=== PATIENT | female | born 1975 | race Caucasian/White ===

== ENCOUNTER → 2021-11-13 01:11 | Outpatient (CLI) | payer OTHER, SELFPAY ==
[2021-11-13 14:24] LABS: Influenza Control Positive
[2021-11-13 20:43] LABS: SARS-CoV-2 RNA PCR Positive
== END ==
PROVIDERS: PCP Internal Medicine; Visit Provider Internal Medicine
DX: U07.1 COVID-19 (principal); R50.9 Fever, unspecified
CPT/HCPCS: 87804; C9803; U0003; U0005

== ENCOUNTER 2022-03-25 16:16 | Outpatient (CLI) | payer OTHER, SELFPAY ==
[2022-03-25 16:41] LABS: Basophils Percent Auto 0.6 % (0.2-1.2); Eosinophils Percent Auto 0.6 % (0-4.4); Hematocrit 41.3 % (37.0-47.0); Hemoglobin 13.2 g/dL (12.0-15.0); Immature Granulocyte Absolute 0.03 K/mm3 (0.00-0.031); Immature Granulocyte Percent A 0.4 % (0-0.5); Lymphocytes Absolute Auto 2.02 K/mm3 (0.9-3.2); Lymphocytes Percent Auto 30.1 % (18.3-44.2); Mean Corpuscular Hemoglobin 29.3 pg (26-34); Mean Corpuscular Volume 91.6 fl (80-100); Mean Platelet Volume 8.4 fl (7.4-10.4); Monocytes Absolute Auto 0.4 K/mm3 (0.1-0.6); Monocytes Percent Auto 5.7 % (2.6-8.5); Neutrophils Absolute Auto 4.2 K/mm3 (1.3-6.7); Neutrophils Percent Auto 62.6 % (45.5-73.1); Platelet Count Result 257 k/mm3 (150-375); Red Blood Count 4.51 M/mm3 (4.2-5.4); Red Cell Distribution Width 12.8 % (11.5-14.5); White Blood Count 6.7 K/mm3 (4.5-10.0)
[2022-03-25 16:46] LABS: Alanine Aminotransferase 25 U/L (6-35); Albumin Level 4.5 g/dL (3.5-5.1); Alkaline Phosphatase 56 U/L (38-126); Anion Gap 5 mmol/L (8-16); Aspartate Amino Transferase 37 U/L (14-36); Bilirubin,Total 0.2 mg/dL (0.2-1.3); Blood Urea Nitrogen 17 mg/dL (7-17); Calcium 9.4 mg/dL (8.4-10.2); Carbon Dioxide 31 mmol/L (22-30); Chloride 101 mmol/L (98-107); Cholesterol 192 mg/dL (0-200); Estimated Glomerular Filt Rate > 60; Glucose 109 mg/dL (65-110); HDL Direct 83 mg/dL; Potassium 4.3 mmol/L (3.4-5.0); Sodium 137 mmol/L (137-145); Triglycerides 66 mg/dL (<150)
[2022-03-25 16:59] LABS: Add Urine Microscopic? YES; Appearance Urine Clear (Clear); Bilirubin Urine Negative (Negative); Blood Urine Trace-Intact (Negative); Color Urine Light Yellow (Yellow); Glucose Urine UA Negative (Negative); Ketones Urine Negative (Negative); Leukocyte Esterase Ur Trace LEU/UL (Negative); Nitrate Urine Negative (Negative); Protein Urine Negative (Negative); Urobilinogen Urine 0.2 mg/dL (<2.0)
[2022-03-25 17:03] LABS: LDL Cholesterol Direct 80 mg/dL
[2022-03-25 17:06] LABS: Squamous Epithelial Cell Urine Rare /hpf (Few)
[2022-03-25 18:07] LABS: Free T4 Free Thyroxine 1.06 ng/mL (0.78-2.19); Vitamin D 25 Hydroxy 75.8 ng/mL
[2022-03-25 18:55] LABS: Hemoglobin A1C 5.8 % (<5.7)
== END 2022-03-25 16:17 | disposition home or self-care (01) ==
PROVIDERS: PCP Internal Medicine; Visit Provider Internal Medicine
DX: I10 Essential (primary) hypertension (principal); E89.0 Postprocedural hypothyroidism; E55.9 Vitamin D deficiency, unspecified; Z79.899 Other long term (current) drug therapy; R73.03 Prediabetes; E78.5 Hyperlipidemia, unspecified
CPT/HCPCS: 36415; 80053; 80061; 81001; 82306; 83036; 84439; 84443; 85025

== ENCOUNTER 2022-05-20 15:08 | Outpatient (CLI) | payer OTHER, SELFPAY | END 2022-05-20 15:09 | disposition home or self-care (01) | LOC: ANHLAB 15:09 | PROVIDERS: PCP Internal Medicine; Visit Provider Internal Medicine | DX: Z20.818 Contact with and (suspected) exposure to other bacterial communicable diseases (principal) | CPT/HCPCS: 87081 ==

== ENCOUNTER 2022-08-05 15:05 | Outpatient (CLI) | payer OTHER, SELFPAY ==
--- NOTE | ~2022-08-05 | XR_ITS ---
XR foot LT min 3V DATE: 08/05/2022 15:30 INDICATION: Left foot injury TECHNIQUE: 4 views COMPARISON: None FINDINGS: Exaggerated arch. Mild plantar calcaneal enthesopathy without associated erosive change or periostitis. Mild osteoarthritis at the first metatarsophalangeal joint. No fracture, dislocation, periosteal reaction or bone destruction. IMPRESSION: Mild plantar calcaneal enthesopathy Mild osteoarthritis at first metatarsophalangeal joint Reviewed, dictated and finalized at location B.
== END 2022-08-05 15:06 | disposition home or self-care (01) ==
PROVIDERS: PCP Internal Medicine; Visit Provider Internal Medicine
DX: M77.32 Calcaneal spur, left foot (principal); M19.072 Primary osteoarthritis, left ankle and foot; S99.922A Unspecified injury of left foot, initial encounter; X58.XXXA Exposure to other specified factors, initial encounter
CPT/HCPCS: 73630

== ENCOUNTER 2022-11-09 16:09 | Outpatient (CLI) | payer OTHER, SELFPAY ==
[2022-11-09 17:34] LABS: Basophils Absolute Auto 0.1 K/mm3 (0.0-0.1); Basophils Percent Auto 0.9 % (0.2-1.2); Eosinophils Absolute Auto 0.1 K/mm3 (0-0.3); Eosinophils Percent Auto 2.2 % (0-4.4); Hematocrit 41.3 % (37.0-47.0); Hemoglobin 13.3 g/dL (12.0-15.0); Immature Granulocyte Absolute 0.02 K/mm3 (0.00-0.031); Immature Granulocyte Percent A 0.3 % (0-0.5); Lymphocytes Absolute Auto 2.03 K/mm3 (0.9-3.2); Lymphocytes Percent Auto 31.7 % (18.3-44.2); Mean Corpuscular HGB Conc 32.2 g/dl (32-36); Mean Corpuscular Hemoglobin 29.9 pg (26-34); Mean Corpuscular Volume 92.8 fl (80-100); Mean Platelet Volume 8.5 fl (7.4-10.4); Monocytes Absolute Auto 0.4 K/mm3 (0.1-0.6); Monocytes Percent Auto 5.8 % (2.6-8.5); Neutrophils Absolute Auto 3.8 K/mm3 (1.3-6.7); Neutrophils Percent Auto 59.1 % (45.5-73.1); Platelet Count Result 291 k/mm3 (150-375); Red Blood Count 4.45 M/mm3 (4.2-5.4); White Blood Count 6.4 K/mm3 (4.5-10.0)
[2022-11-09 17:45] LABS: Alanine Aminotransferase 28 U/L (6-35); Albumin Level 4.6 g/dL (3.5-5.1); Alkaline Phosphatase 70 U/L (38-126); Anion Gap 9 mmol/L (8-16); Aspartate Amino Transferase 34 U/L (14-36); Bilirubin,Total 0.3 mg/dL (0.2-1.3); Blood Urea Nitrogen 17 mg/dL (7-17); Calcium 9.3 mg/dL (8.4-10.2); Carbon Dioxide 29 mmol/L (22-30); Chloride 100 mmol/L (98-107); Cholesterol 204 mg/dL (0-200); Estimated Glomerular Filt Rate > 60; Glucose 92 mg/dL (65-110); HDL Direct 74 mg/dL; Potassium 4.2 mmol/L (3.4-5.0); Sodium 138 mmol/L (137-145); Triglycerides 175 mg/dL (<150)
[2022-11-09 17:56] LABS: LDL Cholesterol Direct 87 mg/dL
[2022-11-09 20:49] LABS: Free T4 Free Thyroxine 0.92 ng/mL (0.78-2.19); Vitamin D 25 Hydroxy 64.6 ng/mL
== END 2022-11-09 16:10 | disposition home or self-care (01) ==
LOC: ANHLAB 16:13
PROVIDERS: PCP Internal Medicine; Visit Provider Internal Medicine
DX: I10 Essential (primary) hypertension (principal); R73.03 Prediabetes; E78.5 Hyperlipidemia, unspecified; E03.9 Hypothyroidism, unspecified; E55.9 Vitamin D deficiency, unspecified
CPT/HCPCS: 36415; 80053; 80061; 82306; 83036; 84439; 84443; 85025

== ENCOUNTER 2023-03-04 16:03 | Outpatient (CLI) | payer OTHER, SELFPAY ==
--- NOTE | ~2023-03-04 | CT_ITS ---
EXAMINATION: CT sinus wo con DATE: 03/04/2023 16:20 INDICATION: Chronic sinusitis, drainage. History of sinus surgery. TECHNIQUE: Computed tomography (CT) of the paranasal sinuses was performed without contrast. Iterativ e reconstruction technique was employed. Exam dose: 322.78 mGy-cm total exam DLP. COMPARISON: None FINDINGS: There is mild rightward bowing of the anterior portion of the nasal septum and mild leftwar d bowing of the posterior nasal septum. There is asymmetric prominent soft tissue swelling of the right middle and inferior nasal turbinates. There is intralamellar cell of the left middle nasal turbinate. There is left nasal antral window with resection of the left uncinate process. However, there is hernan re thecal periosteal thickening and partial calcification of the left maxillary sinus. The nasal antr al window and contiguous middle meatus are largely opacified. Mild soft tissue thickening of the right maxillary ostium and right infundibulum; the right ostiomeat al unit is otherwise patent. Status post bilateral partial ethmoidectomies. There is left anterior ethmoid opacification. The frontal sinuses and sphenoid sinuses and right maxillary sinus are well aerated, without mucoperi osteal thickening or fluid level or soft tissue mass density. The mastoid air cells are very well developed and aerated bilaterally. IMPRESSION: Anterior rightward bowing and posterior leftward bowing of the nasal septum Prominent asymmetric soft tissue swelling of the right middle and inferior nasal turbinates Mild intralamellar cell of left middle nasal turbinate Mild soft tissue thickening at the right maxillary ostium and right infundibulum Status post left uncinate process resection and left nasal antral window, which is completely opacifi ed, including the contiguous middle meatus Severe mucoperiosteal thickening and partial calcification of the left maxillary ostium Status post bilateral ethmoidectomies, anterior left ethmoid air cell opacification Reviewed, dictated and finalized at Location A. Reviewed, dictated and finalized at location B. IMPRESSION: Anterior rightward bowing and posterior leftward bowing of the anita al septum Prominent asymmetric soft tissue swelling of the right middle and inferior nasa l turbinates Mild intralamellar cell of left middle nasal turbinate Mild soft tissue thickening at the right maxillary ostium and right infundibulu m Status post left uncinate process resection and left nasal antral window, which is completely opacified, including the contiguous middle meatus Severe mucoperiosteal thickening and partial calcification of the left maxillar y ostium Status post bilateral ethmoidectomies, anterior left ethmoid air cell opacifica tion
== END 2023-03-04 16:04 | disposition home or self-care (01) ==
LOC: ANHIMG 16:04
PROVIDERS: PCP Internal Medicine; Visit Provider Internal Medicine
DX: J32.9 Chronic sinusitis, unspecified (principal); R93.0 Abnormal findings on diagnostic imaging of skull and head, not elsewhere classified
CPT/HCPCS: 70486

== ENCOUNTER 2023-07-01 00:37 | Day surgery (SDC) | payer OTHER, SELFPAY ==
[2023-06-21 13:52] VITALS: BMI 29.2
--- NOTE | 2023-06-21 13:53 | PC.NURSE ---
Report to the Outpatient Waiting Room, entrance under the green pavilion located off [facility], at time _0730_ on date _[id number]_. Planned Procedure Time: _0930_. Time changes happen often and if your time is changed the preop area will call you the afternoon before. - You and your visitor will be asked to self-screen and do not enter if you have any COVID symptoms. - A mask is optional within the hospital at this time. Patients may have clear liquids (water, carbonated beverages, clear teas, apple juice) until 3 hours prior to surgery with a maximum of 20 ounces. - No food from midnight until time of surgery Take the following medications with a SIP of water the morning of surgery: ___None DO NOT STOP ANY OF YOUR OTHER PRESCRIPTION MEDICATIONS PRIOR TO SURGERY ?EXCEPT THE FOLLOWING Medications to discontinue per physician None Date to take last dose Please no make-up, nail dutch, hairspray, perfume, deodorant, or body powder the day of surgery. No jewelry (including any body piercings) or valuables the day of surgery, leave them at home. Please take a shower or bath the night before, or the morning of, surgery with an antibacterial soap. Wear comfortable, loose fitting clothing. - Jewelry must be removed prior to entering the operating room. Rings and piercings that are not removed may be cut off. - The hospital will not accept responsibility for valuables. - Please leave all valuables, including medications, at home the day of surgery. If you are going home after surgery, a licensed truss driver helper must drive you home. - NO public transportation without another adult if you receive anesthesia. - We recommend that an adult stay with you for 24 hours following discharge. - We also recommend that you do not drive, make important decision, drink alcoholic beverages, or take any drugs that were not prescribed by your health care provider for at least 24 hours after your discharge time. Follow any additional instructions given to you from your surgeon. If you or anyone in your household have experienced Covid symptoms in the past week, please notify your surgeon or the nurse liaison at the phone number below for possible testing. Telephone instructions given to __Patient___and asked if any additional questions and then verbalized understanding. Patient advised to call surgeon office or pre surgery nurse liaison [phone] if any additional questions.
--- NOTE | 2023-06-30 17:30 | PM.IMHP ---
H&P: HPI History of Present Illness Date/Time: 06/30/23 17:30 Chief Complaint: nasal obstruction nasal congestion fungal sinusitis chronic sinusitis septal deviation Narrative: planned procedure Review of Systems Review of Systems: All systems reviewed & are unremarkable except as noted in HPI and below [facility] Past Medical History Medical History Abnormal finding of blood chemistry Acute recurrent maxillary sinusitis Allergic rhinitis Angioedema Benign essential hypertension BMI 26.0-26.9,adult BMI 27.0-27.9,adult BMI 28.0-28.9,adult BMI 29.0-29.9,adult BMI 30.0-30.9,adult BMI 31.0-31.9,adult Change in bowel habits Chronic low back pain Colon cancer screening Constipation Dietary counseling and surveillance Dyslipidemia Encounter for preventive health examination Encounter for routine adult health examination with abnormal findings Encounter for routine adult health examination without abnormal findings Environmental allergies Follow up Hypothyroid IBS (irritable bowel syndrome) Injury of left foot MRSA exposure On long-term drug therapy Pre-diabetes Sinus drainage Stress due to illness of family member URI (upper respiratory infection) Urticaria Vitamin D deficiency Surgical History Surgical History History of back surgery Family History Family History Mother Family history of obesity Hypertension Family history of malignant neoplasm Family history of diabetes mellitus in first degree relative Diabetes mellitus Grandparent Family history of osteoporosis Family history of congestive heart failure Diabetes mellitus Family history of malignant neoplasm of ovary Acute myocardial infarction Father Acute myocardial infarction Social History Social History Smoking status: Never smoker Second hand tobacco smoke exposure: No Alcohol intake: never Substance use type: marijuana Lack of Transportation: No Lack of Food: Never True Current Housing: I Have Housing Concerned About Future Housing: No Difficulty Paying Gas/Electric Bills: No Difficulty Paying for Meds: No Currently Unemployed: No Education: Bachelor's Degree Difficulty w/ Childcare or Family Care: No Living arrangements: alone Occupation/Education: occupation Gender identity (if verbalized by the patient): Female Spiritual care concerns: No Meds Home Medications and Allergies Home Medications Medication Instructions Recorded Confirmed Type azelastine 137 mcg (0.1 %) nasal 1 spray intranasal Q12H #30 mL 03/15/23 06/21/23 Rx spray aerosol losartan 50 mg tablet See Rx Instructions .Route 03/21/23 06/21/23 Rx .COMPLEX #90 tabs levothyroxine 50 mcg tablet See Rx Instructions .Route 05/20/23 06/21/23 Rx .COMPLEX #84 tabs gabapentin 100 mg capsule See Rx Instructions .Route 05/30/23 06/21/23 Rx .COMPLEX #90 caps cyclobenzaprine 10 mg tablet See Rx Instructions .Route 06/06/23 06/21/23 Rx .COMPLEX #30 tabs amlodipine 5 mg tablet See Rx Instructions .Route 06/10/23 06/21/23 Rx .COMPLEX #90 tabs pseudoephedrine HCl 120 mg See Rx Instructions .Route 06/13/23 06/21/23 Rx tablet,extended release .COMPLEX #60 tabs prednisone 5 mg tablet See Rx Instructions PO DAILY #15 06/17/23 06/21/23 Rx tabs doxycycline hyclate 100 mg capsule 100 mg PO HS 06/21/23 06/21/23 History norgestimate 0.25 mg-ethinyl 1 tablet PO DAILY 06/21/23 06/21/23 History estradiol 35 mcg tablet (Sprintec (28)) Allergies Allergy/AdvReac Type Severity Reaction Status Date / Time cefdinir AdvReac Unknown Diarrhea Verified 06/21/23 13:42 clarithromycin AdvReac Unknown GI upset Verified 06/21/23 13:42 Exam Narrative: chronic appearing sinuses septal deviation
[2023-07-01] VITALS (11 sets, daily range): BP systolic 111–140; BP diastolic 64–79; PULSE 73–89; RESP 10–17; TEMP 36.1–36.2; O2SAT 98–100
--- NOTE | 2023-07-01 07:18 | WPDHPUPDATE1 ---
History and Physical Update Update Date/Time: 07/01/23 07:18 History and Physical has been reviewed, including an updated exam of the patient. There are NO changes in the patient's condition. Risks, benefits, and alternatives have been discussed and questions answered. Patient agrees to proceed with procedure.
[2023-07-01] MEDS: ACETAMINOPHEN 500 MG TABLET 1000 MG PO (07:51)
--- NOTE | 2023-07-01 08:05 | WPDANESEPPF ---
Anes - Initial Pre Proc Eval Procedure: Operation Date: 07/01/23 09:30 Proposed Procedures p Image Guided Left Anterior Ethmoidectomy, Left Maxillary Antrostomy without Tissue Removal - Finn Padron MD s Endoscopic Septoplasty - Finn Padron MD Date/Time: 07/01/23 08:05 Surgeon: Finn Padron MD Pre Op Diagnosis: Chr Sinusitis Patient Data Age: 47 Gender: F Height: 1.57 m Weight: 72.7 kg Allergies Allergy/AdvReac Type Severity Reaction Status Date / Time cefdinir AdvReac Unknown Diarrhea Verified 07/01/23 07:43 clarithromycin AdvReac Unknown GI upset Verified 07/01/23 07:43 Home Medications Medication Instructions Recorded Confirmed Type azelastine 137 mcg (0.1 %) nasal 1 spray intranasal Q12H #30 mL 03/15/23 06/21/23 Rx spray aerosol losartan 50 mg tablet See Rx Instructions .Route 03/21/23 06/21/23 Rx .COMPLEX #90 tabs levothyroxine 50 mcg tablet See Rx Instructions .Route 05/20/23 06/21/23 Rx .COMPLEX #84 tabs gabapentin 100 mg capsule See Rx Instructions .Route 05/30/23 06/21/23 Rx .COMPLEX #90 caps cyclobenzaprine 10 mg tablet See Rx Instructions .Route 06/06/23 06/21/23 Rx .COMPLEX #30 tabs amlodipine 5 mg tablet See Rx Instructions .Route 06/10/23 06/21/23 Rx .COMPLEX #90 tabs pseudoephedrine HCl 120 mg See Rx Instructions .Route 06/13/23 06/21/23 Rx tablet,extended release .COMPLEX #60 tabs prednisone 5 mg tablet See Rx Instructions PO DAILY #15 06/17/23 06/21/23 Rx tabs doxycycline hyclate 100 mg capsule 100 mg PO HS 06/21/23 06/21/23 History norgestimate 0.25 mg-ethinyl 1 tablet PO DAILY 06/21/23 06/21/23 History estradiol 35 mcg tablet (Sprintec (28)) Patient hx anesthesia problems: none Family hx anesthesia problems: none Results Review: All pre-operative results and documents have been reviewed as part of the pre-operative evaluation. [facility] Past Medical History Medical History Abnormal finding of blood chemistry Acute recurrent maxillary sinusitis Allergic rhinitis Angioedema Benign essential hypertension BMI 26.0-26.9,adult BMI 27.0-27.9,adult BMI 28.0-28.9,adult BMI 29.0-29.9,adult BMI 30.0-30.9,adult BMI 31.0-31.9,adult Change in bowel habits Chronic low back pain Colon cancer screening Constipation Dietary counseling and surveillance Dyslipidemia Encounter for preventive health examination Encounter for routine adult health examination with abnormal findings Encounter for routine adult health examination without abnormal findings Environmental allergies Follow up Hypothyroid IBS (irritable bowel syndrome) Injury of left foot MRSA exposure On terminal make up operator drug therapy Pre-diabetes Sinus drainage Stress due to illness of family member URI (upper respiratory infection) Urticaria Vitamin D deficiency Surgical History Surgical History History of back surgery Family History Family History Mother Family history of obesity Hypertension Family history of malignant neoplasm Family history of diabetes mellitus in first degree relative Diabetes mellitus Grandparent Family history of osteoporosis Family history of congestive heart failure Diabetes mellitus Family history of malignant neoplasm of ovary Acute myocardial infarction Father Acute myocardial infarction Social History Social History Smoking status: Never smoker Second hand tobacco smoke exposure: No Alcohol intake: never Substance use type: marijuana Lack of Transportation: No Lack of Food: Never True Current Housing: I Have Housing Concerned About Future Housing: No Difficulty Paying Gas/Electric Bills: No Difficulty Paying for Meds: No Currently Unemployed: No Education: Bachelor's Degree Difficulty w/ Child
[2023-07-01] MEDS: LACTATED RINGERS 1,000 ML 30 ML IV CONT ×2 (08:15→10:21)
[2023-07-01] MEDS: ceFAZolin 2 GM/D5W 50 ML 2 GM/50 ML BAG IVPB (08:37)
[2023-07-01] MEDS: OXYMETAZOLINE HCL 0.05% NAS 15 ML BTL (*BKC) 1 SPRAY NASAL (08:59)
[2023-07-01] MEDS: LIDO 1%/EPINEPHRINE 1:100,000 20 ML VIAL 5 ML INFILTRATE (09:00)
[2023-07-01] MEDS: fentaNYL CITRATE INJ (*CRX) 100 MCG/2 ML VIAL 25 MCG IV PUSH ×4 (10:42→10:51)
--- NOTE | 2023-07-01 10:47 | W.PM.PROC2 ---
Procedure Note - Detailed Date of Procedure 07/01/23 Pre-op Diagnosis Chr Sinusitis sinusitis allergic fungal sinusitis acute sinusitis septal deviation turbinate hypertrophy Post-op Diagnosis Same Procedure Performed Turbinate outfracture septoplasty left maxillary antrostomy with tissue removal left anterior ethmoidectomy always under image guidance. Surgeon Finn Padron MD Anesthesia General Indications See above Findings Copious amounts of fungal debris in the left maxillary sinus purulence as well scant purulence anterior ethmoids. Left severe septal deviation well corrected. Turbinates reduced well with an outfracture. Description of Procedure Patient identified consent verified preop. Patient brought operating. Time-out performed. General anesthesia induced endotracheal tube secured. Patient prepped draped position procedure confirmed 2nd time-out performed. Image guidance initiated confirmed. Afrin-soaked pledgets placed for 5 minutes then removed. Total 13 cc 1% lidocaine 1 100,000 parts epinephrine injected bilateral nasal septum. Herman incision made left-sided left nasal septal flap elevated 7 Mongolian suction. Osteotome utilized out lie in the septum right nasal septal flap elevated deviated septum removed combination osteotome Adam Peñaton forceps Maricarmen forceps. Suction suck clean Herman incision closed interrupted 5 0 fast gut sutures. Turbinates outfractured per week. Excellent reduction. Left max entered double ball tip probe backbiter straight through cut microdebrider 70 degree scope 0 degree scope rad 60 all utilized to remove the fungal ball irrigated with 500 cc sterile normal saline. Anterior ethmoids opened up with Kerrison microdebrider under image guidance. Small bleeding vessel cauterized with Bovie suction electrocautery setting 10. Nova pack placed on this side bilateral nasal passages irrigated suction Ramirez splints placed sutured anteriorly using a 3-0 mattressed nylon suture. I performed all dictated portions procedure no complications. Total blood loss 25 cc. Patient taken to PACU. Estimated Blood Loss 25 Drains No Packing Yes (Nova pack) Pathology Yes Complications No immediate complications Condition Stable Disposition PACU [facility] Billing Surgery - Charge Forward: Surgery Billing
[2023-07-01] MEDS: oxyCODONE HCL (*CRX) 5 MG TAB IR PO (12:02)
== END 2023-07-01 12:40 | disposition home or self-care (01) ==
PROVIDERS: PCP Internal Medicine; Visit Provider Otolaryngology
PROC: (CPT 31254; principal; 2023-07-01 09:30)
PROC: (CPT 30520; 2023-07-01 09:30)
DX: J32.9 Chronic sinusitis, unspecified (principal); J34.2 Deviated nasal septum; B48.8 Other specified mycoses; J34.3 Hypertrophy of nasal turbinates; J30.89 Other allergic rhinitis; I10 Essential (primary) hypertension; E78.5 Hyperlipidemia, unspecified; E03.9 Hypothyroidism, unspecified; K58.1 Irritable bowel syndrome with constipation; R73.03 Prediabetes; E55.9 Vitamin D deficiency, unspecified; F12.90 Cannabis use, unspecified, uncomplicated
CPT/HCPCS: 31254; 31267; 30520; 30930; 61782; A9270; J0330; J0690; J1100; J2250; J2405; J2704; J3010; J7120

== ENCOUNTER 2024-03-23 10:37 | Outpatient (CLI) | payer OTHER, SELFPAY ==
--- NOTE | ~2024-03-23 | XR_ITS ---
Left Knee Technique: AP and lateral views were obtained. Clinical History: Pain Findings: No fracture or dislocation is seen. Osseous alignment is anatomic. Joint spaces are preserv ed without degenerative or erosive change. Soft tissues are unremarkable. No joint effusion is seen. Impression: Unremarkable left knee radiographs. Reviewed, dictated and finalized at location . Impression: Unremarkable left knee radiographs.
== END 2024-03-23 10:38 | disposition home or self-care (01) ==
LOC: ANHIMG 10:42
PROVIDERS: PCP Internal Medicine; Visit Provider Internal Medicine
DX: M25.562 Pain in left knee (principal); W19.XXXA Unspecified fall, initial encounter
CPT/HCPCS: 73560

== ENCOUNTER 2024-09-28 05:49 | Day surgery (SDC) | payer OTHER, SELFPAY ==
[2024-09-14 09:47] VITALS: BMI 24.2
--- NOTE | 2024-09-27 16:35 | P.PNAN_ITS ---
Anes - Initial Pre Proc Eval Procedure: Operation Date: 09/28/24 07:30 Proposed Procedures p Arthrodesis First Metatarsophalangeal Joint Left Foot - Eugenio Crane Jr., DPM Date/Time: 09/27/24 16:35 Surgeon: Eugenio Crane Jr., DPM Pre Op Diagnosis: Arthritic Bunion Left Foot Patient Data Age: 48 Gender: F Height: 1.57 m Weight: 60 kg Allergies Allergy/AdvReac Type Severity Reaction Status Date / Time cefdinir AdvReac Intermediate Diarrhea Verified 09/28/24 06:12 clarithromycin AdvReac Intermediate GI upset Verified 09/28/24 06:12 Home Medications Medication Instructions Recorded Confirmed Type norgestimate 0.25 mg-ethinyl 1 tablet PO DAILY 06/21/23 09/28/24 History estradiol 35 mcg tablet (Sprintec (28)) semaglutide 2 mg/dose (8 mg/3 mL) 2 mg (0.75 mL) subcut WEEKLY #9 mL 11/23/23 09/28/24 Rx subcutaneous pen injector (Ozempic) alprazolam 0.5 mg tablet (Xanax) 0.5 mg PO TID PRN anxiety #40 tabs 03/26/24 09/28/24 Rx levothyroxine 50 mcg tablet See Rx Instructions .Route 07/24/24 09/28/24 Rx .COMPLEX #84 tabs amlodipine 5 mg tablet See Rx Instructions .Route 07/30/24 09/28/24 Rx .COMPLEX #90 tabs sertraline 50 mg tablet See Rx Instructions .Route 07/30/24 09/28/24 Rx .COMPLEX #30 tabs gabapentin 100 mg capsule See Rx Instructions .Route 08/27/24 09/28/24 Rx .COMPLEX #90 caps fluticasone propionate 50 1 spray intranasal DAILY #16 grams 09/03/24 09/28/24 Rx mcg/actuation nasal spray,suspension (Allergy Relief (fluticasone)) losartan 100 mg tablet 100 mg PO DAILY #90 tabs 09/03/24 09/28/24 Rx cyclobenzaprine 10 mg tablet See Rx Instructions .Route 09/10/24 09/28/24 Rx .COMPLEX #90 tabs azelastine 137 mcg (0.1 %) nasal 1 spray intranasal Q12H PRN 09/14/24 09/28/24 History spray Congestion ferrous sulfate 1 tab-cap PO DAILY 09/14/24 09/28/24 History hydrochlorothiazide 12.5 mg tablet 12.5 mg PO DAILY #90 tabs 09/18/24 09/28/24 Rx pseudoephedrine HCl 120 mg See Rx Instructions .Route 09/18/24 09/28/24 Rx tablet,extended release .COMPLEX #60 tabs Patient hx anesthesia problems: none Family hx anesthesia problems: none Results Review: All pre-operative results and documents have been reviewed as part of the pre- operative evaluation. [facility] Past Medical History Medical History (Updated 09/18/24 @ 15:11 by Melisa Bennett CMA) Abnormal finding of blood chemistry Acute recurrent maxillary sinusitis Allergic rhinitis Angioedema Benign essential hypertension BMI 24.0-24.9, adult BMI 26.0-26.9,adult BMI 27.0-27.9,adult BMI 28.0-28.9,adult BMI 29.0-29.9,adult BMI 30.0-30.9,adult BMI 31.0-31.9,adult Breast cancer screening Change in bowel habits Chronic low back pain Colon cancer screening Constipation Dietary counseling and surveillance Dyslipidemia Encounter for preventive health examination Encounter for routine adult health examination with abnormal findings Encounter for routine adult health examination without abnormal findings Environmental allergies Follow up Hypothyroid IBS (irritable bowel syndrome) Injury of left foot MRSA exposure On keno terminal operator drug therapy Pre-diabetes Sinus drainage Stress due to illness of family member URI (upper respiratory infection) Urticaria Vitamin D deficiency Surgical History Surgical History History of back surgery Family History Family History Mother Family history of obesity Hypertension Family history of malignant neoplasm Family history of diabetes mellitus in first degree relative Diabetes mellitus Grandparent Family history of osteoporosis Family history of congestive heart failure Diabetes mellitus Family history of malignant neoplasm of ovary Acute myocardial infarction Father Acute myocardial infarction Social History Social History Smoking status: Never smoker Second hand tobacco smoke exposure: No Alcohol intake: never Substance use: current Substance use type: marijuana Other substance usage details: cannabis oil daily for back pain Last use: 09-14-24 Lack of Transportation: No Lack of Food: Never True Current Housing: I Have Housing Concerned About Future Housing: No Difficulty Paying Gas/Electric Bills: No Difficulty Paying for Meds: No Currently Unemployed: No Education: Bachelor's Degree Difficulty w/ Childcare or Family Care: No Living arrangements: alone Occupation/Education: occupation Gender identity (if verbalized by the patient): Female Spiritual care concerns: No Anes - Eval Final PreProcedure Day of Procedure Patient weight: normal Heart: regular rate and rhythm Lungs: clear to auscultation Airway: Mallampati scale class II Neurological: alert and oriented Last oral intake: >/= 8 hours ASA classification: III Emergent: no Anesthetic plan: proceed Anesthesia type and monitoring: general LMA and standard monitoring
[2024-09-28] VITALS (10 sets, daily range): BP systolic 114–125; BP diastolic 67–77; PULSE 88–99; RESP 10–16; TEMP 35.9–37.1; O2SAT 97–100
--- NOTE | ~2024-09-28 | XR_ITS ---
EXAMINATION: XR surgery orthopedic DATE: 09/28/2024 08:48 INDICATION: Arthrodesis of left first metatarsophalangeal joint. TECHNIQUE: 2 intraoperative fluoroscopic views of left foot were obtained. I was not present. The flu oroscopy exposure time is 8 seconds. COMPARISON: left foot radiographs 09/04/2022 FINDINGS: There are changes of arthrodesis of first metatarsophalangeal joint with dorsal plate and s crews and interfragmentary screw. IMPRESSION: 1. Arthrodesis of left first metatarsophalangeal joint. Reviewed, dictated and finalized at location A. [employer]
[2024-09-28] MEDS: LACTATED RINGERS 1,000 ML 30 ML IV CONT ×2 (06:48→08:59)
--- NOTE | 2024-09-28 07:14 | WPDHPUPDATE1 ---
History and Physical Update Update Date/Time: 09/28/24 07:14 History and Physical has been reviewed, including an updated exam of the patient. There are NO changes in the patient's condition. Risks, benefits, and alternatives have been discussed and questions answered. Patient agrees to proceed with procedure.
[2024-09-28] MEDS: ceFAZolin SODIUM 2 GM/20 ML SW SYRINGE IV PUSH (07:32)
[2024-09-28] MEDS: LIDOCAINE HCL 2% LOCAL INJ 20 ML VIAL 10 ML INFILTRATE (07:40)
--- NOTE | 2024-09-28 08:58 | W.PM.PROC2 ---
Procedure Note - Detailed Date of Procedure 09/28/24 Pre-op Diagnosis Arthritic Bunion Left Foot Post-op Diagnosis Same Procedure Performed Arthrodesis of the first metatarsal phalangeal joint left foot Surgeon Eugenio Crane Jr., DPM Anesthesia General and Regional Indications Painful left big toe joint Findings Severe articular loss of cartilage to the first metatarsal phalangeal joint Description of Procedure PROCEDURE IN DETAIL: Under mild sedation, the patient was brought into the operating room, placed on the operating table in supine position. A pneumatic ankle tourniquet was placed about the patient's ipsilateral ankle. Following general anesthesia and a popliteal fossa block, the foot was then scrubbed, prepped, and draped in the usual aseptic manner. An Esmarch bandage was then used to exsanguinate the patient's foot and the pneumatic ankle tourniquet was then inflated. Surgery began in the following manner: Attention was directed to the dorsal medial aspect of the 1st metatarsophalangeal joint where there was a moderate subcutaneous prominence was noted. The incision was made starting along the central shaft of the 1st metatarsal and extending just proximal to the interphalangeal joint of the hallux. The incision was continued deep down through the subcutaneous tissues using sharp and blunt dissection. All bleeders were cauterized as necessary. At this point, the dissection was continued down to the level of the periosteum and capsular structures overlying the 1st metatarsophalangeal joint. A full length periosteum and capsular incision was made just medial to the extensor hallucis longus tendon. The periosteum and capsular structures were freed from the base of the proximal phalanx as well as the distal 1st metatarsal. At this point, the 1st metatarsophalangeal joint was identified. There was loss of articular cartilage to the head of the 1st metatarsal as well as the base of the proximal phalanx worse centrally and medially. There was significant broadening and hypertrophy of the 1st metatarsophalangeal joint. Utilizing a sagittal bone saw, the hypertrophied 1st metatarsal was resected dorsally, medially, and laterally. A power bur was used to make sure that there were no rough edges and also to further debride the hypertrophic 1st metatarsal. Next, a rongeur was used to resect the hypertrophic base of the proximal phalanx. At this point, the reamer system for the Maxforce plaste system was used to denude the degenerative cartilage from the head of the 1st metatarsal as well as the base of the proximal phalanx. The cartilage and subchondral bone were fully debrided utilizing the reamer system until healthy bleeding bone was noted. Next, a 2-0 drill bit was used to further fenestrate the head of the 1st metatarsal as well as the base of the proximal phalanx in order to allow fusion across the 1st metatarsophalangeal joint. Next, a guide wire for a 3.0 headless Arthrex compression screw was driven from the medial aspect of the base of the proximal phalanx into the head of the 1st metatarsal in order to serve as temporary fixation, next the cannulated screw was driven and provided excellent compression. Next A large steel plate was used to make sure that the hallux was in a rectus position both in the sagittal plane as well as the frontal plane. Excellent position of the hallux was noted. Next, a Maxforce plate was placed atop the 1st metatarsophalangeal joint held in position with [place] wires. Utilizing standard principles and techniques, the distal drill holes were drilled and three 3.0 mm mm fully-threaded locking screws were driven from dorsal to plantar holding the distal aspect of the plate intact. At this point, the Maxforce compression system was utilized from dorsal distal to proximal plantar across the 1st metatarsophalangeal joint with excellent compression noted. Next, a 3.0mm locking screw was used to further compress the joint along the oblong dynamic compression screw slot. Next, the remaining 2 proximal drill holes were drilled from dorsal to plantar across and two 3.0 mm locking screws were driven form dorsal to plantar. The wound site was then flushed with copious amounts of sterile saline. Fluoroscopy was used to make sure that the plate was appropriately aligned and oriented and also to make sure that the screws were of appropriate length and orientation. Excellent position of the 1st metatarsophalangeal joint was visualized in all planes. Next, the periosteum and capsular structures were reapproximated with 3-0 Vicryl. Next, the subcutaneous structures were reapproximated with 4-0 Vicryl. Next, the skin was reapproximated and coapted utilizing 4-0 Monocryl in running subcuticular suture fashion technique. Upon completion of the procedure, the incision was dressed with Steri-Strips, Adaptic, 4x4s, Kerlix, and Coban. The pneumatic ankle tourniquet was then deflated and a prompt hyperemic response was noted to all digits of the foot. A posterior splint was then applied to the affected lower extremity. It is important to note that Dr. Crane was present throughout the procedure. The patient did very well with the procedure and the anesthesia. The patient was transferred to the recovery room with vital signs stable and vascular status intact to all toes of the foot. Following a period of postoperative monitoring, the patient will be discharged home on the following written and oral postoperative instructions: 1. Keep the dressing clean, dry, and intact. 2. The patient to be strictly nonweightbearing with a knee scooter or crutches. 3. The patient should ice and elevate the foot when at rest. 4. The patient should contact Dr. Crane for all postop care and if any problems should arise. 5. Prescriptions were written for Percocet 5/325, dispensed 40 to be taken 1 p.o. q.4-6 hours as needed for severe pain. Furthermore, the patient should also take Xarelto 10 mg to be taken 1 p.o. daily starting 24 hours after surgery to prevent DVT for 14 days followed by one 325 mg aspirin until walking is re-initiated. Implants Arthrex Petite Maxforce Plate with 4 lockings screws Arthrex 3.5x24mm Headless Crosscrew 3.0mm Kreulock screw Estimated Blood Loss 1 Drains No Packing No Pathology None sent Complications No immediate complications Condition Stable Disposition Same day
--- NOTE | 2024-09-28 09:03 | WPDANESPNB ---
Anes - Peripheral Nerve Block Date/Time: 09/28/24 09:03 I have discussed with the patient/family/POA the placement of a peripheral nerve block for post-operative pain management, including associated risks, benefits, complications, and side effects. Alternative methods of post-operative analgesia were detailed. Questions were solicited and answers provided to the satisfaction of the patient/family/POA. Time-Out: A pre-procedural Time-Out was completed immediately before starting the procedure and confirmed: Patient Identification, Site, Procedure, Patient Position and the Availability of Requisite Equipment. Clinical Indications: Acute post-operative pain management requested by the operative surgeon. Nerve Block Insertion Note Anes-nerve block: posterior fossa sciatic left and other (saphenous nerve block) Patient position: supine Skin prep: chlorhexidine Needle: 22 gauge, stimulating, insulated echogenic needle. Needle length: 80 mm Technique: nerve stimulation lost at (mA) (for popliteal lost at 0.3) Injectate: bupivacaine 0.5% with epi 5 mcg/ml (20 mL for popliteal, 10 mL for saphenous (no epi)) Observations: tolerated well Complications: none Procedure start time:: 719 Procedure end time:: 729
--- NOTE | 2024-09-28 09:13 | SUR.PHASEI ---
0900- ice pack under left knee-elevated on pillow-patient tolerating well
--- NOTE | 2024-09-28 10:32 | WPDANESPN ---
Anes - Prog Note Post-Op Date/Time: 09/28/24 10:32 Cardiovascular status: normal Respiratory status: normal Airway patency: baseline Mental status: baseline Post-Op hydration status: normal Vital Signs: Last Vital Signs Temp 35.9 C L 09/28/24 08:50 Pulse 89 09/28/24 10:17 Resp 14 09/28/24 10:17 BP 124/76 09/28/24 10:17 Pulse Ox 100 09/28/24 10:17 O2 Del Method Room Air 09/28/24 10:17 O2 Flow Rate 8 09/28/24 08:50 Pain Score (VAS): 0 I/O: Intake & Output 09/27/24 09/28/24 09/28/24 23:59 07:59 15:59 Intake Total 250 Balance 250 Post-procedural complaints: none Patient Feedback: Patient satisfied with anesthetic care. Other Findings: Patient vital signs back to baseline. Patient denies nausea and vomiting. Patient's pain under control. Patient OK for discharge.
== END 2024-09-28 10:26 | disposition home or self-care (01) ==
PROVIDERS: PCP Internal Medicine; Visit Provider Podiatrist Foot & Ankle Surgery
PROC: (CPT 28299; principal; 2024-09-28 07:30)
DX: M20.5X2 Other deformities of toe(s) (acquired), left foot (principal)
CPT/HCPCS: 28750; L8699; 99199